=== PATIENT | female | born 1960 ===

== ENCOUNTER 2017-12-06 12:39 | Emergency (ER) | payer OTHER ==
[2017-12-06 12:48] VITALS: O2SAT 98
[2017-12-06 14:06] LABS: BASO % 0.6 % (0.0-2.0); EOS % 1.1 % (0.0-4.0); HEMOGLOBIN 13.2 g/dL (11.0-16.0); LYMPH # 1.7 K/uL (1.0-4.3); LYMPH % 41.7 % (20.0-40.0); MEAN CELL VOLUME 88.9 fL (81.0-99.0); MEAN CORPUSCULAR HEMOGLOBIN 31.2 pg (27.0-31.0); MEAN CORPUSCULAR HGB CONC 35.1 g/dL (33.0-37.0); MEAN PLATELET VOLUME 9.2 fL (7.2-11.7); MONO # 0.3 K/uL (0.0-0.8); MONO % 6.5 % (0.0-10.0); NEUT # 2.1 K/uL (1.8-7.0); NEUT % 50.1 % (50.0-75.0); NRBC % 0.1 % (0.0-2.0); RBC 4.23 Mil/uL (3.80-5.20); RED CELL DISTRIBUTION WIDTH 13.2 % (11.5-14.5); WHITE BLOOD COUNT 4.1 K/uL (4.8-10.8)
[2017-12-06 14:20] LABS: ALB/GLOB RATIO 1.6 (1.0-2.1); ALBUMIN 4.3 g/dL (3.5-5.0); ALT/SGPT 41 U/L (9-52); AST/SGOT 25 U/L (14-36); BLOOD UREA NITROGEN 18 mg/dL (7-17); CALCIUM 9.3 mg/dl (8.6-10.4); GFR NON-AFRICAN AMERICAN > 60
[2017-12-06 14:30] LABS: B-TYPE NATRIURETIC PEPTIDE 55.1 pg/mL (0-900)
--- NOTE | 2017-12-06 14:50 | C.PDOC ---
History Of Present Illness 57 year old female with a history of GERD and Swanzey Palsy was sent by PMD for evaluation of bilateral parasternal pain for the last two weeks. 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 Notes she does not take any medications and was diagnosed with Swanzey Palsy. Denies fever, nausea, vomiting, and any other associated symptoms. Time Seen by Provider: 12/06/17 13:07 Chief Complaint (Nursing): Chest Pain History Per: Patient History/Exam Limitations: no limitations Onset/Duration Of Symptoms: Days Current Symptoms Are (Timing): Still Present Recent travel outside of the [place]: No Past Medical History Reviewed: Historical Data, Nursing Documentation, Vital Signs Vital Signs: Last Vital Signs Temp 98.1 F 12/06/17 12:45 Pulse 60 12/06/17 13:33 Resp 16 12/06/17 12:45 BP 129/76 12/06/17 12:45 Pulse Ox 98 12/06/17 12:45 - Medical History PMH: HTN, Hypercholesterolemia Denies: Chronic Kidney Disease Surgical History: Cholecystectomy - [facility] Procedures COLONOSCOPY (07/15/14) ESOPHAGOGASTRODUODENOSCOPY [EGD] W/CLOSED BIOPSY (07/15/14) LAPAROSCOPIC CHOLECYSTECTOMY (03/17/13) Family History: States: Unknown Family Hx - Social History Hx Alcohol Use: No Hx Substance Use: No - Immunization History Hx Tetanus Toxoid Vaccination: No Hx Influenza Vaccination: No Hx Pneumococcal Vaccination: No Review Of Systems Except As Marked, All Systems Reviewed And Found Negative. Constitutional: Negative for: Fever, Chills Cardiovascular: Positive for: Chest Pain (parasternal) Gastrointestinal: Negative for: Nausea, Vomiting Physical Exam - Physical Exam Appears: Non-toxic, Other ( female) Skin: Normal Color, Warm, Dry, No Rash Head: Atraumatic, Normacephalic Eye(s): bilateral: Normal Inspection Nose: Normal Oral Mucosa: Moist Neck: Normal ROM Chest: Symmetrical, No Deformity, Other (reproducible bilateral parasternal boar altagracia ) Respiratory: Other (NARD) Extremity: Normal ROM (x4), No Deformity Neurological/Psych: Oriented x3, Normal Speech, Other (mild right facial droop) Gait: Steady ED Course And Treatment - Laboratory Results Result Diagrams: 12/06/17 13:58 12/06/17 13:58 Lab Interpretation: Normal (trop neg.) ECG: Interpreted By Me ECG Rhythm: Sinus Rhythm ECG Interpretation: Normal Rate From EC O2 Sat by Pulse Oximetry: 98 (RA) Pulse Ox Interpretation: Normal - Radiology CXR: Interpreted by Me, Viewed By Me, Read By Radiologist CXR Interpretation: Yes: No Acute Disease - Other Rad CXR X-Ray: Interpreted by Me, Viewed By Me, Read By Radiologist Interpretation: IMPRESSION: No active disease. No significant interval change compared to the prior examination(s). Reevaluation Time: 14:38 Reassessment Condition: Improved Medical Decision Making Medical Decision Making: Plan: --EKG --Blood sent. --CXR --Given Ibuprofen and Pepcid. Progress/Update: ice pack to sternum/chest wall motrin/pepcid PO though chest wall discomfort L anterior mid-clavicular area c/w houskeeping strain she also has h/o GERD presently untreated. Will restart Pepcid HS Disposition Doctor Will See Patient In The: Office Counseled Patient/Family Regarding: Studies Performed, Diagnosis - Disposition Referrals: Tam Degroot PA [Advanced Practice Nurse] - Disposition: HOME/ ROUTINE Disposition Time: 14:50 Condition: GOOD Additional Instructions: EKG and labs/troponin normal Costochondritis ibuprofeno 400 mg cada 6 horas dana necessario bols de hielo 1/2 hora por hora no levanta nada pesada por 1 semana GERD: Lyudmila comidas que provocan el GERD Pepcid 20 mg en la noche por 6 meces Sigue con zavala medico para hacer endoscopia dana necessario. Prescriptions: Famotidine [Pepcid] 20 mg PO HS #30 tab Instructions: Costochondritis, Acid Reflux (Gastroesophageal Reflux Disease) in Adults Forms: [employer] (Latvian) Print Language: BULGARIAN - Clinical Impression Clinical Impression: Chest wall discomfort, GERD (gastroesophageal reflux disease) - Scribe Statement The provider has reviewed the documentation as recorded by the Scribe (Zee Mckeon) Provider Attestation: All medical record entries made by the Scribe were at my direction and personally dictated by me. I have reviewed the chart and agree that the record accurately reflects my personal performance of the history, physical exam, medical decision making, and the department course for this patient. I have also personally directed, reviewed, and agree with the discharge instructions and disposition.
[2017-12-06 14:52] VITALS: BP 122/79; PULSE 46; RESP 18; TEMP 98
--- NOTE | 2017-12-06 14:55 | RAD ---
Date of service: 12/06/2017 HISTORY: SOB COMPARISON: 08/30/2016 TECHNIQUE: Chest PA and lateral FINDINGS: LUNGS: No active pulmonary disease. Stable calcified granuloma bilaterally. PLEURA: No significant pleural effusion identified. No pneumothorax apparent. CARDIOVASCULAR: Normal. OSSEOUS STRUCTURES: No significant abnormalities. VISUALIZED UPPER ABDOMEN: Normal. OTHER FINDINGS: None. IMPRESSION: No active disease. No significant interval change compared to the prior examination(s). Concordant results with the preliminary interpretation rendered by the emergency department physician procedure.
--- NOTE | 2017-12-07 11:37 | CARD ---
APPROVED REPORT Date of service: 12/06/2017 EKG Measurement Heart [id number] <Conclusion> Sinus bradycardia Low voltage QRS Nonspecific T wave abnormality Abnormal ECG
== END 2017-12-06 15:10 | disposition home or self-care (01) ==
LOC: C.ER 12:39
DX: K21.9 Gastro-esophageal reflux disease without esophagitis (principal); R07.89 Other chest pain; E78.00 Pure hypercholesterolemia, unspecified; I10 Essential (primary) hypertension

== ENCOUNTER 2018-06-12 11:54 | Emergency (ER) | payer OTHER ==
[2018-06-12 12:06] VITALS: BP 126/81; PULSE 58; TEMP 98.1; O2SAT 100
--- NOTE | 2018-06-12 13:41 | RAD ---
HISTORY: cough, pain to left upper back COMPARISON: Chest x-ray performed 12/06/17 TECHNIQUE: Chest PA and lateral FINDINGS: LUNGS: No focal consolidation. Scattered probable calcified granulomas, largest measuring approximately 4 mm in the left upper lobe. Please note that chest x-ray has limited sensitivity for the detection of pulmonary masses. PLEURA: No significant pleural effusion identified. No definite pneumothorax . CARDIOVASCULAR: Heart size appears within normal limits. Atherosclerotic calcifications of the aorta. OSSEOUS STRUCTURES: Degenerative changes. VISUALIZED UPPER ABDOMEN: Unremarkable. OTHER FINDINGS: None. IMPRESSION: No focal consolidation. Scattered probable calcified granulomas, largest measuring approximately 4 mm in the left upper lobe.
--- NOTE | 2018-06-12 13:48 | C.PDOC ---
History Of Present Illness 58 y/o female with a PMH of HTN and hypercholesterolemia presents to the ED complaining of mid back pain for 2 days. She also reports 4 day history of nonproductive cough. Patient also complains of a mild headache. She denies any fever, chills, chest pain, SOB, nausea, vomiting, or pleuritic pain. Pain is worse at night, causing patient to have difficulty sleeping. Time Seen by Provider: 06/12/18 12:13 Chief Complaint (Nursing): Cough, Cold, Congestion History Per: Patient History/Exam Limitations: no limitations Onset/Duration Of Symptoms: Days (x 2) Current Symptoms Are (Timing): Still Present Associated Symptoms: None Past Medical History Reviewed: Historical Data, Nursing Documentation, Vital Signs Vital Signs: Last Vital Signs Temp 98.1 F 06/12/18 12:02 Pulse 58 L 06/12/18 12:02 Resp 18 06/12/18 12:02 BP 126/81 06/12/18 12:02 Pulse Ox 100 06/12/18 12:02 - Medical History PMH: HTN, Hypercholesterolemia Denies: Chronic Kidney Disease Surgical History: Cholecystectomy - [facility] Procedures COLONOSCOPY (07/15/14) ESOPHAGOGASTRODUODENOSCOPY [EGD] W/CLOSED BIOPSY (07/15/14) LAPAROSCOPIC CHOLECYSTECTOMY (03/17/13) Family History: States: Unknown Family Hx - Social History Hx Alcohol Use: No Hx Substance Use: No - Immunization History Hx Tetanus Toxoid Vaccination: No Hx Influenza Vaccination: No Hx Pneumococcal Vaccination: No Review Of Systems Except As Marked, All Systems Reviewed And Found Negative. Constitutional: Negative for: Fever, Chills ENT: Positive for: Nose Congestion Cardiovascular: Negative for: Chest Pain, Palpitations Respiratory: Positive for: Cough. Negative for: Shortness of Breath Gastrointestinal: Negative for: Nausea, Vomiting, Abdominal Pain, Diarrhea Genitourinary: Negative for: Dysuria, Frequency Musculoskeletal: Positive for: Back Pain Skin: Negative for: Rash Neurological: Negative for: Weakness, Numbness Physical Exam - Physical Exam Appears: Non-toxic, No Acute Distress Skin: Warm, Dry, No Rash Head: Atraumatic, Normacephalic Eye(s): bilateral: Normal Inspection Nose: Normal Oral Mucosa: Moist Neck: Normal ROM Chest: Symmetrical Cardiovascular: Rhythm Regular, No Murmur Respiratory: No Accessory Muscle Use, Rhonchi (scattered), No Wheezing, Other (No respiratory distress) Gastrointestinal/Abdominal: Soft, No Tenderness, No Distention Extremity: Bilateral: Atraumatic, Normal Color And Temperature Neurological/Psych: Oriented x3, Normal Speech ED Course And Treatment O2 Sat by Pulse Oximetry: 100 (RA) Pulse Ox Interpretation: Normal - Other Rad CXR X-Ray: Read By Radiologist Interpretation: Accession No. : [id number]. Patient Name / ID : [id number] HINKLE / [id number]. Exam Date : 06/12/2018 13:04:19 ( Approved ). Study Comment : Sex / Age : F / 58Y. Creator : fletcher izaguirre. Dictator : Therese Sevilla MD. Accordion Tuner : Arcg[employer] Developer : Therese Sevilla MD. Approver2 : Report Date : 06/12/2018 13:25:37. My Comment : . HISTORY: cough, pain to left upper back. COMPARISON: Chest x-ray performed 12/06/17. TECHNIQUE: Chest PA and lateral. FINDINGS: LUNGS: No focal consolidation. Scattered probable calcified granulomas, largest measuring approximately 4 mm in the left upper lobe. Please note that chest x-ray has limited sensitivity for the detection of pulmonary masses. PLEURA: No significant pleural effusion identified. No definite pneumothorax . CARDIOVASCULAR: Heart size appears within normal limits. Atherosclerotic calcifications of the aorta. OSSEOUS STRUCTURES: Degenerative changes. VISUALIZED UPPER ABDOMEN: Unremarkable. OTHER FINDINGS: None. IMPRESSION: No focal consolidation. Scattered probable calcified granulomas, largest measuring approximately 4 mm in the left upper lobe. Medical Decision Making Medical Decision Making: Plan: - Chest x-ray On re-exam, the patient remains well and playful in the ED. Lungs are CTA, heart is RRR, abdomen is soft, non-tender an the patient is tolerating PO well. Follow up with the medical doctor within 1-2 days. Return if worsened. Disposition - Disposition Referrals: Hamlet David [Staff Provider] - Disposition: HOME/ ROUTINE Disposition Time: 14:26 Condition: GOOD Additional Instructions: Follow up with the medical doctor within 1-2 days. return if worsened. 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 - Scribe Statement The provider has reviewed the documentation as recorded by the Ramon Farnsworth All medical record entries made by the Ramon were at my direction and personally dictated by me. I have reviewed the chart and agree that the record accurately reflects my personal performance of the history, physical exam, medical decision making, and the department course for this patient. I have also personally directed, reviewed, and agree with the discharge instructions and disposition.
[2018-06-12 14:45] VITALS: RESP 20
== END 2018-06-12 14:44 | disposition home or self-care (01) ==
LOC: C.ER 11:54
DX: J40 Bronchitis, not specified as acute or chronic (principal); I10 Essential (primary) hypertension; E78.00 Pure hypercholesterolemia, unspecified